=== PATIENT | female | born 1945 | race Caucasian/White ===

== ENCOUNTER 2017-07-04 10:39 | Inpatient (IN) | payer MEDICARE ==
[~2017-07-04] VITALS: Ht 152.4 cm; Wt 70.4 kg
[~2017-07-04 10:39] MED LIST: ASPI325 PO; ASPI325EC PO; ASPI81CH PO; ASPI81EC; ATOR10; ATOR40TA; CHOL10002 PO; CILO50; CILO50 PO; CLOP75 PO; ECHINACEA; FLAX PO; FLAX SEED OIL1 EACH PO; FLUO20 PO; GARLIC PO; GLIP5; GLIP5 PO; INS70/30I SC; INSUASPI SC; LISI5 PO; LORA.5 PO; LOVA20 PO; MECL25; MECL25 PO; METF500; METF500 PO; METO25ER PO; METO50 PO; NICO2 PO; Norco 5-325 Ta1 EACH PO; Prednisone20 MG PO; ROSU10TA; SIMV40 PO; SULTRIDS PO; VITAMIN D-32000 UNI1 PO; VITAMIN D-32000 UNIT; Zofran Odt4 MG SL; [UNRECOGNIZED DRUG - REMARK]
[2017-07-04 12:05] LABS: BASOPHILS ABSOLUTE AUTO 0.06 K/mm3 (0.00-0.23); BASOPHILS PERCENT AUTO 1 % (0-2); EOSINOPHILS ABSOLUTE AUTO 0.01 K/mm3 (0.00-0.68); EOSINOPHILS PERCENT AUTO 0 % (0-6); Hematocrit 33.9 % (33.0-51.0); Hemoglobin 10.8 g/dL (11.5-16.0); IMMATURE GRAN ABSOLUTE AUTO 0.03 K/mm3 (0.00-0.10); IMMATURE GRAN PERCENT AUTO 0 % (0-1); LYMPHOCYTES ABSOLUTE AUTO 0.87 K/mm3 (0.84-5.20); LYMPHOCYTES PERCENT AUTO 11 % (21-46); MONOCYTES ABSOLUTE AUTO 0.58 K/mm3 (0.16-1.47); MONOCYTES PERCENT AUTO 7 % (4-13); Mean Corpuscular HGB 28.5 pg (26.0-34.0); Mean Corpuscular HGB Conc 31.9 g/dL (31.5-36.5); Mean Corpuscular Volume 89 fL (80-100); Mean Platelet Volume 10.6 fL (9.1-12.4); NEUTROPHILS PERCENT AUTO 81 % (41-73); Platelet Count 273 K/mm3 (150-400); RDW Coefficient Variation 14.2 % (11.7-14.2); Red Blood Cell Count 3.79 M/mm3 (3.80-5.20); White Blood Cell Count 7.95 K/mm3 (4.00-11.30)
[2017-07-04 12:18] LABS: International Normalized Ratio 1.09; Prothrombin Time Results 11.4 Sec (9.7-11.5)
[2017-07-04 12:30] LABS: Albumin, Blood 2.8 g/dL (3.4-5.0); Albumin/Globulin Ratio 0.6 (0.8-1.8); Bilirubin, Total 0.5 mg/dL (0.1-1.0); Calcium, Blood 8.7 mg/dL (8.5-10.1); Creatinine, Blood 1.03 mg/dL (0.40-1.00); Globulin, Blood 4.5 g/dL (2.2-4.0); Potassium, Blood 5.6 mmol/L (3.5-5.5); Total Protein, Blood 7.3 g/dL (6.4-8.2)
[2017-07-04] MEDS ORDERED: ATOR40TA PO (16:12)
[2017-07-05 04:08] LABS: BASOPHILS ABSOLUTE AUTO 0.08 K/mm3 (0.00-0.23); BASOPHILS PERCENT AUTO 1 % (0-2); EOSINOPHILS ABSOLUTE AUTO 0.06 K/mm3 (0.00-0.68); EOSINOPHILS PERCENT AUTO 1 % (0-6); Hematocrit 30.7 % (33.0-51.0); IMMATURE GRAN ABSOLUTE AUTO 0.02 K/mm3 (0.00-0.10); IMMATURE GRAN PERCENT AUTO 0 % (0-1); LYMPHOCYTES ABSOLUTE AUTO 1.72 K/mm3 (0.84-5.20); LYMPHOCYTES PERCENT AUTO 26 % (21-46); MONOCYTES ABSOLUTE AUTO 0.77 K/mm3 (0.16-1.47); MONOCYTES PERCENT AUTO 12 % (4-13); Mean Corpuscular HGB 28.7 pg (26.0-34.0); Mean Corpuscular HGB Conc 32.6 g/dL (31.5-36.5); Mean Corpuscular Volume 88 fL (80-100); NEUTROPHILS ABSOLUTE AUTO 4.03 K/mm3 (1.96-9.15); NEUTROPHILS PERCENT AUTO 60 % (41-73); Platelet Count 259 K/mm3 (150-400); RDW Coefficient Variation 14.1 % (11.7-14.2); RDW Standard Deviation 45.1 fL (35.1-46.3); Red Blood Cell Count 3.49 M/mm3 (3.80-5.20); White Blood Cell Count 6.68 K/mm3 (4.00-11.30)
[2017-07-05 04:28] LABS: Bun/Creatinine Ratio 26.6 (12.0-20.0); Calcium, Blood 8.2 mg/dL (8.5-10.1); Creatinine, Blood 1.09 mg/dL (0.40-1.00); Potassium, Blood 4.7 mmol/L (3.5-5.5)
[2017-07-05] MEDS ORDERED: XARELTO20 MG PO (13:16)
[2017-07-06] MEDS ORDERED: INS70/30I SC (11:20)
== END 2017-07-06 12:41 | disposition home health service (06) | DRG 300 ==
LOC: ER 10:39 → PCU 15:04
PROVIDERS: Emergency Medicine; Hospitalist
DX: I82.412 Acute embolism and thrombosis of left femoral vein (principal); I74.3 Embolism and thrombosis of arteries of the lower extremities; I82.432 Acute embolism and thrombosis of left popliteal vein; E11.51 Type 2 diabetes mellitus with diabetic peripheral angiopathy without gangrene; D63.8 Anemia in other chronic diseases classified elsewhere; I99.8 Other disorder of circulatory system; E78.5 Hyperlipidemia, unspecified; F17.210 Nicotine dependence, cigarettes, uncomplicated; K58.2 Mixed irritable bowel syndrome; I10 Essential (primary) hypertension; E11.42 Type 2 diabetes mellitus with diabetic polyneuropathy; Z79.82 Long term (current) use of aspirin; Z79.4 Long term (current) use of insulin; Z79.899 Other long term (current) drug therapy; Z86.73 Personal history of transient ischemic attack (TIA), and cerebral infarction without residual deficits; Z95.820 Peripheral vascular angioplasty status with implants and grafts; Z88.8 Allergy status to other drugs, medicaments and biological substances
CPT/HCPCS: 36415; 80048; 80053; 82947; 85025; 85610; 85730; 93926; 93971; 96372; 97116; 97162; 97530; 99285; G8978; G8979; G8980; J1644; J1650; J7120

== ENCOUNTER 2017-07-14 14:21 | Emergency (ER) | payer MEDICARE, OTHER ==
[~2017-07-14] VITALS: Ht 152.4 cm; Wt 72.6 kg
[~2017-07-14 14:21] MED LIST changes: +ATOR40TA PO; +XARELTO20 MG PO
[2017-07-14 15:09] LABS: BASOPHILS ABSOLUTE AUTO 0.04 K/mm3 (0.00-0.23); BASOPHILS PERCENT AUTO 0 % (0-2); EOSINOPHILS ABSOLUTE AUTO 0.03 K/mm3 (0.00-0.68); EOSINOPHILS PERCENT AUTO 0 % (0-6); Hematocrit 31.7 % (33.0-51.0); IMMATURE GRAN ABSOLUTE AUTO 0.05 K/mm3 (0.00-0.10); IMMATURE GRAN PERCENT AUTO 1 % (0-1); LYMPHOCYTES ABSOLUTE AUTO 1.35 K/mm3 (0.84-5.20); LYMPHOCYTES PERCENT AUTO 14 % (21-46); MONOCYTES ABSOLUTE AUTO 0.79 K/mm3 (0.16-1.47); MONOCYTES PERCENT AUTO 8 % (4-13); Mean Corpuscular HGB 27.9 pg (26.0-34.0); Mean Corpuscular HGB Conc 31.5 g/dL (31.5-36.5); Mean Corpuscular Volume 88 fL (80-100); Mean Platelet Volume 10.1 fL (9.1-12.4); NEUTROPHILS ABSOLUTE AUTO 7.22 K/mm3 (1.96-9.15); NEUTROPHILS PERCENT AUTO 76 % (41-73); Platelet Count 360 K/mm3 (150-400); RDW Standard Deviation 45.4 fL (35.1-46.3); Red Blood Cell Count 3.59 M/mm3 (3.80-5.20); White Blood Cell Count 9.48 K/mm3 (4.00-11.30)
[2017-07-14 15:34] LABS: Albumin, Blood 2.6 g/dL (3.4-5.0); Albumin/Globulin Ratio 0.5 (0.8-1.8); Bilirubin, Total 0.3 mg/dL (0.1-1.0); Bun/Creatinine Ratio 25.2 (12.0-20.0); Calcium, Blood 9.2 mg/dL (8.5-10.1); Creatinine, Blood 1.11 mg/dL (0.40-1.00); Globulin, Blood 5.1 g/dL (2.2-4.0); Potassium, Blood 4.5 mmol/L (3.5-5.5); Total Protein, Blood 7.7 g/dL (6.4-8.2)
== END 2017-07-14 16:54 | disposition home or self-care (01) ==
LOC: ER 14:21
PROVIDERS: Emergency Medicine
DX: I82.402 Acute embolism and thrombosis of unspecified deep veins of left lower extremity (principal); L03.116 Cellulitis of left lower limb; I87.8 Other specified disorders of veins
CPT/HCPCS: 36415; 80053; 85025

== ENCOUNTER 2017-08-14 09:46 | Inpatient (IN) | payer MEDICARE ==
[~2017-08-14] VITALS: Ht 152.4 cm; Wt 68.6 kg
[2017-08-14 11:12] LABS: BASOPHILS ABSOLUTE AUTO 0.07 K/mm3 (0.00-0.23); BASOPHILS PERCENT AUTO 1 % (0-2); EOSINOPHILS ABSOLUTE AUTO 0.06 K/mm3 (0.00-0.68); EOSINOPHILS PERCENT AUTO 1 % (0-6); Hematocrit 28.7 % (33.0-51.0); Hemoglobin 8.9 g/dL (11.5-16.0); IMMATURE GRAN ABSOLUTE AUTO 0.04 K/mm3 (0.00-0.10); IMMATURE GRAN PERCENT AUTO 0 % (0-1); LYMPHOCYTES ABSOLUTE AUTO 1.16 K/mm3 (0.84-5.20); LYMPHOCYTES PERCENT AUTO 12 % (21-46); MONOCYTES ABSOLUTE AUTO 0.58 K/mm3 (0.16-1.47); MONOCYTES PERCENT AUTO 6 % (4-13); Mean Corpuscular HGB 27.6 pg (26.0-34.0); Mean Corpuscular Volume 89 fL (80-100); Mean Platelet Volume 10.2 fL (9.1-12.4); NEUTROPHILS PERCENT AUTO 80 % (41-73); Platelet Count 380 K/mm3 (150-400); RDW Coefficient Variation 15.2 % (11.7-14.2); RDW Standard Deviation 49.3 fL (35.1-46.3); Red Blood Cell Count 3.23 M/mm3 (3.80-5.20); White Blood Cell Count 9.61 K/mm3 (4.00-11.30)
[2017-08-14 11:19] LABS: Albumin, Blood 2.7 g/dL (3.4-5.0); Albumin/Globulin Ratio 0.7 (0.8-1.8); Bilirubin, Total 0.3 mg/dL (0.1-1.0); Bun/Creatinine Ratio 27.7 (12.0-20.0); Calcium, Blood 8.6 mg/dL (8.5-10.1); Creatinine, Blood 1.01 mg/dL (0.40-1.00); Globulin, Blood 4.1 g/dL (2.2-4.0); Potassium, Blood 4.3 mmol/L (3.5-5.5); Total Protein, Blood 6.8 g/dL (6.4-8.2)
[2017-08-14] MEDS ORDERED: Humalog Mi100 UNIT/5 INJ ×2 (11:25)
[2017-08-14 12:14] LABS: International Normalized Ratio 1.31; Prothrombin Time Results 13.3 Sec (9.7-11.5)
[2017-08-14 12:48] LABS: Percent Saturation 11.2 % (15.0-50.0)
[2017-08-14 16:47] LABS: Source, Urine Clean Catch
[2017-08-14 16:59] LABS: Bilirubin, Urine Neg (Neg); Blood, Urine 1+ (Neg); Glucose Qualitative, Urine 3+ (Neg); Ketones, Urine Neg (Neg); Leukocyte Esterase, Urine Neg (Neg); Nitrite, Urine Neg (Neg); Protein, Urine 3+ (Neg); Urobilinogen, Urine NORM (Normal)
[2017-08-14 17:12] LABS: Appearance, Urine Clear (Clear); Color, Urine Pale Yellow (P-Yellow); Red Blood Cells, Urine Not Seen /hpf (0-2); White Blood Cells, Urine Not Seen /hpf (0-5)
[2017-08-14 17:13] LABS: Bacteria Many /hpf; Squamous Epithelial Cells Few /hpf (Few)
[2017-08-15 04:43] LABS: BASOPHILS ABSOLUTE AUTO 0.05 K/mm3 (0.00-0.23); BASOPHILS PERCENT AUTO 1 % (0-2); EOSINOPHILS ABSOLUTE AUTO 0.07 K/mm3 (0.00-0.68); EOSINOPHILS PERCENT AUTO 1 % (0-6); Hematocrit 26.2 % (33.0-51.0); Hemoglobin 8.3 g/dL (11.5-16.0); IMMATURE GRAN ABSOLUTE AUTO 0.01 K/mm3 (0.00-0.10); IMMATURE GRAN PERCENT AUTO 0 % (0-1); LYMPHOCYTES ABSOLUTE AUTO 1.54 K/mm3 (0.84-5.20); LYMPHOCYTES PERCENT AUTO 20 % (21-46); MONOCYTES ABSOLUTE AUTO 0.58 K/mm3 (0.16-1.47); MONOCYTES PERCENT AUTO 7 % (4-13); Mean Corpuscular HGB 27.7 pg (26.0-34.0); Mean Corpuscular HGB Conc 31.7 g/dL (31.5-36.5); Mean Corpuscular Volume 87 fL (80-100); Mean Platelet Volume 9.7 fL (9.1-12.4); NEUTROPHILS ABSOLUTE AUTO 5.61 K/mm3 (1.96-9.15); NEUTROPHILS PERCENT AUTO 71 % (41-73); Platelet Count 318 K/mm3 (150-400); RDW Coefficient Variation 15.3 % (11.7-14.2); RDW Standard Deviation 48.7 fL (35.1-46.3); White Blood Cell Count 7.86 K/mm3 (4.00-11.30)
[2017-08-15 04:57] LABS: Bun/Creatinine Ratio 22.8 (12.0-20.0); Calcium, Blood 8.3 mg/dL (8.5-10.1); Creatinine, Blood 1.14 mg/dL (0.40-1.00); Potassium, Blood 4.4 mmol/L (3.5-5.5)
[2017-08-15] MEDS ORDERED: LORA.5 PO (22:24)
[2017-08-16 14:31] LABS: Vancomycin, Trough 15.6 ug/mL (5.0-10.0)
[2017-08-17 00:31] LABS: Stool Occult Blood Guaiac 1 Pos (Neg)
[2017-08-17 07:22] LABS: BASOPHILS ABSOLUTE AUTO 0.06 K/mm3 (0.00-0.23); BASOPHILS PERCENT AUTO 1 % (0-2); EOSINOPHILS ABSOLUTE AUTO 0.08 K/mm3 (0.00-0.68); EOSINOPHILS PERCENT AUTO 1 % (0-6); Hematocrit 26.7 % (33.0-51.0); Hemoglobin 8.3 g/dL (11.5-16.0); IMMATURE GRAN ABSOLUTE AUTO 0.02 K/mm3 (0.00-0.10); IMMATURE GRAN PERCENT AUTO 0 % (0-1); LYMPHOCYTES ABSOLUTE AUTO 1.49 K/mm3 (0.84-5.20); LYMPHOCYTES PERCENT AUTO 23 % (21-46); MONOCYTES ABSOLUTE AUTO 0.55 K/mm3 (0.16-1.47); MONOCYTES PERCENT AUTO 9 % (4-13); Mean Corpuscular HGB 27.3 pg (26.0-34.0); Mean Corpuscular HGB Conc 31.1 g/dL (31.5-36.5); Mean Corpuscular Volume 88 fL (80-100); Mean Platelet Volume 9.9 fL (9.1-12.4); NEUTROPHILS ABSOLUTE AUTO 4.21 K/mm3 (1.96-9.15); NEUTROPHILS PERCENT AUTO 66 % (41-73); Platelet Count 328 K/mm3 (150-400); RDW Coefficient Variation 15.6 % (11.7-14.2); RDW Standard Deviation 49.5 fL (35.1-46.3); Red Blood Cell Count 3.04 M/mm3 (3.80-5.20); White Blood Cell Count 6.41 K/mm3 (4.00-11.30)
[2017-08-17 07:37] LABS: Bun/Creatinine Ratio 20.9 (12.0-20.0); Calcium, Blood 8.1 mg/dL (8.5-10.1); Creatinine, Blood 1.39 mg/dL (0.40-1.00); Potassium, Blood 4.6 mmol/L (3.5-5.5)
[2017-08-18 08:51] LABS: Hematocrit 28.8 % (33.0-51.0)
[2017-08-18 09:07] LABS: Bun/Creatinine Ratio 17.2 (12.0-20.0); Calcium, Blood 8.5 mg/dL (8.5-10.1); Creatinine, Blood 1.16 mg/dL (0.40-1.00); Potassium, Blood 4.4 mmol/L (3.5-5.5)
[2017-08-19] MEDS ORDERED: ACET325 PO (11:09)
[2017-08-19] MEDS ORDERED: Ferrous Sulfat325 M2 PO (11:10)
[2017-08-19] MEDS ORDERED: ACIDOPHILUS LA1 EACH PO (11:11)
[2017-08-19] MEDS ORDERED: Silvadene20 GM TOP (11:12)
[2017-08-19] MEDS ORDERED: [UNRECOGNIZED DRUG - OTHER] TOP (11:12)
[2017-08-19] MEDS ORDERED: Augmentin 875-1 EACH PO (11:14)
== END 2017-08-19 11:42 | disposition home or self-care (01) | DRG 638 ==
LOC: ER 09:46 → MEDS 11:45
PROVIDERS: Internal Medicine
DX: E11.622 Type 2 diabetes mellitus with other skin ulcer (principal); L03.116 Cellulitis of left lower limb; L89.529 Pressure ulcer of left ankle, unspecified stage; F17.210 Nicotine dependence, cigarettes, uncomplicated; Z86.718 Personal history of other venous thrombosis and embolism; Z79.01 Long term (current) use of anticoagulants; S91.002A Unspecified open wound, left ankle, initial encounter; E11.51 Type 2 diabetes mellitus with diabetic peripheral angiopathy without gangrene; D50.9 Iron deficiency anemia, unspecified; Z79.84 Long term (current) use of oral hypoglycemic drugs; I12.9 Hypertensive chronic kidney disease with stage 1 through stage 4 chronic kidney disease, or unspecified chronic kidney disease; E11.22 Type 2 diabetes mellitus with diabetic chronic kidney disease; N18.3 Chronic kidney disease, stage 3 (moderate); R19.7 Diarrhea, unspecified; A49.01 Methicillin susceptible Staphylococcus aureus infection, unspecified site; B95.4 Other streptococcus as the cause of diseases classified elsewhere
CPT/HCPCS: 36415; 73610; 80048; 80053; 80202; 81001; 82272; 82565; 82728; 82947; 83540; 83550; 83605; 85014; 85018; 85025; 85610; 85730; 87040; 87070; 87075; 87077; 87147; 87186; 87205; 87493; 93005; 93010; 96374; 97110; 97116; 97161; 99285; G8978; G8979; J0690; J1815; J2405; J2543; J2765; J3370; J7030; J7120

== ENCOUNTER 2017-08-22 11:54 | Inpatient (IN) | payer MEDICARE ==
[~2017-08-22] VITALS: Ht 167.6 cm; Wt 63.8 kg
[~2017-08-22 11:54] MED LIST changes: +ACET325 PO; +ACIDOPHILUS LA1 EACH PO; +Augmentin 875-1 EACH PO; +Ferrous Sulfat325 M2 PO; +Humalog Mi100 UNIT/5 INJ; +Silvadene20 GM TOP; +XARELTO15 MG PO; -XARELTO20 MG PO; +[UNRECOGNIZED DRUG - OTHER] TOP
[2017-08-22 12:30] LABS: PCO2 Arterial 35.6 mmHg (35-45)
[2017-08-22 12:39] LABS: BASOPHILS ABSOLUTE AUTO 0.05 K/mm3 (0.00-0.23); BASOPHILS PERCENT AUTO 1 % (0-2); EOSINOPHILS PERCENT AUTO 0 % (0-6); Hematocrit 33.5 % (33.0-51.0); Hemoglobin 9.9 g/dL (11.5-16.0); IMMATURE GRAN ABSOLUTE AUTO 0.04 K/mm3 (0.00-0.10); IMMATURE GRAN PERCENT AUTO 0 % (0-1); LYMPHOCYTES ABSOLUTE AUTO 0.56 K/mm3 (0.84-5.20); LYMPHOCYTES PERCENT AUTO 5 % (21-46); MONOCYTES ABSOLUTE AUTO 0.22 K/mm3 (0.16-1.47); MONOCYTES PERCENT AUTO 2 % (4-13); Mean Corpuscular HGB 26.8 pg (26.0-34.0); Mean Corpuscular HGB Conc 29.6 g/dL (31.5-36.5); Mean Platelet Volume 9.9 fL (9.1-12.4); NEUTROPHILS ABSOLUTE AUTO 9.76 K/mm3 (1.96-9.15); NEUTROPHILS PERCENT AUTO 92 % (41-73); Platelet Count 546 K/mm3 (150-400); RDW Coefficient Variation 16.2 % (11.7-14.2); RDW Standard Deviation 53.6 fL (35.1-46.3); Red Blood Cell Count 3.69 M/mm3 (3.80-5.20); White Blood Cell Count 10.63 K/mm3 (4.00-11.30)
[2017-08-22 12:49] LABS: Mean Corpuscular Volume 91 fL (80-100)
[2017-08-22 12:52] LABS: Alanine Aminotransfer (ALT/SGP 12 U/L (12-78); Albumin, Blood 2.9 g/dL (3.4-5.0); Albumin/Globulin Ratio 0.6 (0.8-1.8); Alk Phos 92 U/L (50-136); Anion Gap 17 mmol/L (6-16); Aspartate Aminotrans (AST/SGOT 14 U/L (12-37); Bilirubin, Total 0.4 mg/dL (0.1-1.0); Blood Urea Nitrogen 27 mg/dL (8-24); Bun/Creatinine Ratio 28.3 (12.0-20.0); CO2, Blood 19 mmol/L (21-32); Calcium, Blood 9.1 mg/dL (8.5-10.1); Chloride, Blood 102 mmol/L (98-108); Creatinine, Blood 0.96 mg/dL (0.40-1.00); Globulin, Blood 4.7 g/dL (2.2-4.0); Glomerular Filtration Rate >60 (60-); Glucose, Blood 416 mg/dL (70-99); Potassium, Blood 4.2 mmol/L (3.5-5.5); Sodium, Blood 138 mmol/L (136-145); Total Protein, Blood 7.6 g/dL (6.4-8.2); Troponin I 0.387 ng/mL (0.000-0.040)
[2017-08-22 17:35] LABS: Beta-hydroxybutyrate 23.3 mg/dL (0.2-2.8); Thyroid Stimulating Hormone 3.72 uIU/mL (0.360-4.800)
[2017-08-22 21:47] LABS: Creatine Kinase MB 5.2 ng/mL (0.0-3.6); Creatine Kinase MB Index 7.1 (0.0-4.0)
[2017-08-22 22:02] LABS: Troponin I 1.34 ng/mL (0.000-0.040)
[2017-08-22 23:35] LABS: Troponin I 1.25 ng/mL (0.000-0.040)
[2017-08-22] MEDS ORDERED: AMOX875 PO (23:46)
[2017-08-23 03:45] LABS: Hematocrit 25.3 % (33.0-51.0); Hemoglobin 7.9 g/dL (11.5-16.0); Mean Corpuscular HGB 27.5 pg (26.0-34.0); Mean Corpuscular HGB Conc 31.2 g/dL (31.5-36.5); Platelet Count 359 K/mm3 (150-400); RDW Coefficient Variation 16.3 % (11.7-14.2); Red Blood Cell Count 2.87 M/mm3 (3.80-5.20); White Blood Cell Count 9.49 K/mm3 (4.00-11.30)
[2017-08-23 03:51] LABS: Mean Corpuscular Volume 88 fL (80-100)
[2017-08-23 04:07] LABS: Alanine Aminotransfer (ALT/SGP 10 U/L (12-78); Albumin, Blood 2.6 g/dL (3.4-5.0); Albumin/Globulin Ratio 0.7 (0.8-1.8); Alk Phos 68 U/L (50-136); Anion Gap 10 mmol/L (6-16); Aspartate Aminotrans (AST/SGOT 18 U/L (12-37); Bilirubin, Total 0.4 mg/dL (0.1-1.0); Blood Urea Nitrogen 33 mg/dL (8-24); CO2, Blood 25 mmol/L (21-32); Calcium, Blood 7.9 mg/dL (8.5-10.1); Chloride, Blood 100 mmol/L (98-108); Cholesterol 120 mg/dL (50-200); Creatinine, Blood 1.27 mg/dL (0.40-1.00); Globulin, Blood 3.8 g/dL (2.2-4.0); Glomerular Filtration Rate 44 (60-); Glucose, Blood 256 mg/dL (70-99); Magnesium, Blood 1.7 mg/dL (1.6-2.4); Phosphorus, Blood 3.2 mg/dL (2.5-4.9); Potassium, Blood 3.9 mmol/L (3.5-5.5); Sodium, Blood 135 mmol/L (136-145); Total Protein, Blood 6.4 g/dL (6.4-8.2); Triglycerides 162 mg/dL (30-160); Very Low Density Lipoprot Chol 32 mg/dL (6-32)
[2017-08-23 04:09] LABS: CHOL/HDL RATIO 2.9; HDL Cholesterol 41 mg/dL (>39); LDL/HDL RATIO 1.1; Low Density Lipoprotein Chol 47 mg/dL (0-110)
[2017-08-23 09:04] LABS: Creatine Kinase MB 3.5 ng/mL (0.0-3.6); Creatine Kinase MB Index 5.1 (0.0-4.0)
[2017-08-23 09:06] LABS: Troponin I 1.22 ng/mL (0.000-0.040)
[2017-08-23 15:48] LABS: Troponin I 0.875 ng/mL (0.000-0.040)
[2017-08-23 17:20] LABS: Source, Urine Clean Catch
[2017-08-23 17:22] LABS: Bilirubin, Urine Neg (Neg); Blood, Urine Neg (Neg); Glucose Qualitative, Urine Neg (Neg); Ketones, Urine Neg (Neg); Leukocyte Esterase, Urine 1+ (Neg); Nitrite, Urine Neg (Neg); Protein, Urine Neg (Neg); Urobilinogen, Urine NORM (Normal)
[2017-08-23 17:42] LABS: Appearance, Urine Clear (Clear); Color, Urine Yellow (P-Yellow)
[2017-08-23 17:43] LABS: Bacteria Not Seen /hpf; Red Blood Cells, Urine Not Seen /hpf (0-2); Squamous Epithelial Cells Mod /hpf (Few); White Blood Cells, Urine 0-2 /hpf (0-5)
[2017-08-24 09:41] LABS: Albumin, Blood 2.8 g/dL (3.4-5.0); Anion Gap 10 mmol/L (6-16); Blood Urea Nitrogen 35 mg/dL (8-24); Bun/Creatinine Ratio 28.9 (12.0-20.0); CO2, Blood 25 mmol/L (21-32); Calcium, Blood 8.2 mg/dL (8.5-10.1); Chloride, Blood 101 mmol/L (98-108); Creatinine, Blood 1.21 mg/dL (0.40-1.00); Glomerular Filtration Rate 47 (60-); Glucose, Blood 201 mg/dL (70-99); Phosphorus, Blood 3.3 mg/dL (2.5-4.9); Potassium, Blood 4.1 mmol/L (3.5-5.5); Sodium, Blood 136 mmol/L (136-145)
[2017-08-25 05:12] LABS: Albumin, Blood 2.7 g/dL (3.4-5.0); Anion Gap 9 mmol/L (6-16); Blood Urea Nitrogen 38 mg/dL (8-24); Bun/Creatinine Ratio 27.5 (12.0-20.0); CO2, Blood 26 mmol/L (21-32); Calcium, Blood 8.1 mg/dL (8.5-10.1); Chloride, Blood 102 mmol/L (98-108); Creatinine, Blood 1.38 mg/dL (0.40-1.00); Glomerular Filtration Rate 40 (60-); Glucose, Blood 142 mg/dL (70-99); Phosphorus, Blood 3.5 mg/dL (2.5-4.9); Potassium, Blood 4.2 mmol/L (3.5-5.5); Sodium, Blood 137 mmol/L (136-145)
[2017-08-25] MEDS ORDERED: FURO20 PO (10:03)
== END 2017-08-25 17:46 | disposition home health service (06) | DRG 280 ==
LOC: ER 11:54 → ERHOLD 13:05 → PCU 13:05 → ER 13:05 → PCU 20:22 → MEDS 20:23 → PCU 23:34 → MEDS 08-25 00:27 → ENPENDDIS 08-25 17:24 → MEDS 08-25 17:46
PROVIDERS: Emergency Medicine; Internal Medicine
DX: I21.4 Non-ST elevation (NSTEMI) myocardial infarction (principal); J96.01 Acute respiratory failure with hypoxia; I50.21 Acute systolic (congestive) heart failure; I13.0 Hypertensive heart and chronic kidney disease with heart failure and stage 1 through stage 4 chronic kidney disease, or unspecified chronic kidney disease; E87.2 Acidosis; K52.1 Toxic gastroenteritis and colitis; L03.116 Cellulitis of left lower limb; L97.329 Non-pressure chronic ulcer of left ankle with unspecified severity; N18.3 Chronic kidney disease, stage 3 (moderate); E11.22 Type 2 diabetes mellitus with diabetic chronic kidney disease; F41.9 Anxiety disorder, unspecified; F41.0 Panic disorder [episodic paroxysmal anxiety]; E11.65 Type 2 diabetes mellitus with hyperglycemia; T36.95XA Adverse effect of unspecified systemic antibiotic, initial encounter; E11.622 Type 2 diabetes mellitus with other skin ulcer; E11.51 Type 2 diabetes mellitus with diabetic peripheral angiopathy without gangrene; D50.9 Iron deficiency anemia, unspecified; F17.210 Nicotine dependence, cigarettes, uncomplicated; Z66 Do not resuscitate
CPT/HCPCS: 36415; 36600; 71045; 80053; 80061; 80069; 81001; 82010; 82550; 82553; 82803; 82947; 83036; 83605; 83690; 83735; 83880; 84100; 84145; 84443; 84484; 85025; 85027; 93005; 93010; 93306; 94640; 94760; 96374; 97116; 97161; 99285; G8978; G8979; G8980; J1815; J1940; J2405; J7030

== ENCOUNTER 2017-08-26 11:48 | Emergency (ER) | payer MEDICARE ==
[~2017-08-26] VITALS: Ht 152.4 cm; Wt 68.0 kg
[~2017-08-26 11:48] MED LIST changes: +AMOX875 PO; +FURO20 PO
[2017-08-26 12:51] LABS: BASOPHILS ABSOLUTE AUTO 0.03 K/mm3 (0.00-0.23); BASOPHILS PERCENT AUTO 1 % (0-2); EOSINOPHILS ABSOLUTE AUTO 0.02 K/mm3 (0.00-0.68); EOSINOPHILS PERCENT AUTO 0 % (0-6); Hemoglobin 9.1 g/dL (11.5-16.0); IMMATURE GRAN ABSOLUTE AUTO 0.01 K/mm3 (0.00-0.10); IMMATURE GRAN PERCENT AUTO 0 % (0-1); LYMPHOCYTES ABSOLUTE AUTO 0.94 K/mm3 (0.84-5.20); LYMPHOCYTES PERCENT AUTO 16 % (21-46); MONOCYTES ABSOLUTE AUTO 0.45 K/mm3 (0.16-1.47); MONOCYTES PERCENT AUTO 8 % (4-13); Mean Corpuscular HGB 26.9 pg (26.0-34.0); Mean Corpuscular HGB Conc 31.4 g/dL (31.5-36.5); Mean Corpuscular Volume 86 fL (80-100); NEUTROPHILS ABSOLUTE AUTO 4.46 K/mm3 (1.96-9.15); NEUTROPHILS PERCENT AUTO 76 % (41-73); Platelet Count 428 K/mm3 (150-400); RDW Coefficient Variation 16.1 % (11.7-14.2); RDW Standard Deviation 49.9 fL (35.1-46.3); Red Blood Cell Count 3.38 M/mm3 (3.80-5.20); White Blood Cell Count 5.91 K/mm3 (4.00-11.30)
[2017-08-26 13:04] LABS: Albumin, Blood 2.9 g/dL (3.4-5.0); Albumin/Globulin Ratio 0.7 (0.8-1.8); Bilirubin, Total 0.3 mg/dL (0.1-1.0); Bun/Creatinine Ratio 31.1 (12.0-20.0); Calcium, Blood 8.6 mg/dL (8.5-10.1); Globulin, Blood 4.2 g/dL (2.2-4.0); Potassium, Blood 3.9 mmol/L (3.5-5.5); Total Protein, Blood 7.1 g/dL (6.4-8.2)
== END 2017-08-26 14:14 | disposition home or self-care (01) ==
LOC: ER 11:48
PROVIDERS: Emergency Medicine
DX: E11.65 Type 2 diabetes mellitus with hyperglycemia (principal); I10 Essential (primary) hypertension; F17.210 Nicotine dependence, cigarettes, uncomplicated; Z88.8 Allergy status to other drugs, medicaments and biological substances; Z79.899 Other long term (current) drug therapy; Z79.82 Long term (current) use of aspirin; Z79.4 Long term (current) use of insulin; Z86.73 Personal history of transient ischemic attack (TIA), and cerebral infarction without residual deficits
CPT/HCPCS: 36415; 71046; 80053; 82947; 85025; 93005; 93010; 99283

== ENCOUNTER 2017-10-31 12:51 | Emergency (ER) | payer MEDICARE, OTHER ==
[~2017-10-31] VITALS: Ht 152.4 cm; Wt 68.0 kg
[2017-10-31] MEDS ORDERED: Pantoprazole So40 MG PO (13:50)
[2017-10-31] MEDS ORDERED: Klor-Con M1010 MEQ PO (13:51)
[2017-10-31] MEDS ORDERED: FURO40 PO (13:51)
[2017-10-31 13:59] LABS: Source, Urine Clean Catch
[2017-10-31 14:00] LABS: BASOPHILS ABSOLUTE AUTO 0.05 K/mm3 (0.00-0.23); BASOPHILS PERCENT AUTO 1 % (0-2); EOSINOPHILS ABSOLUTE AUTO 0.02 K/mm3 (0.00-0.68); EOSINOPHILS PERCENT AUTO 0 % (0-6); Hematocrit 32.6 % (33.0-51.0); Hemoglobin 10.1 g/dL (11.5-16.0); IMMATURE GRAN ABSOLUTE AUTO 0.03 K/mm3 (0.00-0.10); IMMATURE GRAN PERCENT AUTO 0 % (0-1); LYMPHOCYTES ABSOLUTE AUTO 0.79 K/mm3 (0.84-5.20); LYMPHOCYTES PERCENT AUTO 9 % (21-46); MONOCYTES ABSOLUTE AUTO 0.44 K/mm3 (0.16-1.47); MONOCYTES PERCENT AUTO 5 % (4-13); Mean Corpuscular HGB 25.8 pg (26.0-34.0); Mean Corpuscular Volume 83 fL (80-100); Mean Platelet Volume 11.9 fL (9.1-12.4); NEUTROPHILS ABSOLUTE AUTO 7.06 K/mm3 (1.96-9.15); NEUTROPHILS PERCENT AUTO 84 % (41-73); Platelet Count 244 K/mm3 (150-400); RDW Coefficient Variation 16.3 % (11.7-14.2); RDW Standard Deviation 49.8 fL (35.1-46.3); Red Blood Cell Count 3.91 M/mm3 (3.80-5.20); White Blood Cell Count 8.39 K/mm3 (4.00-11.30)
[2017-10-31 14:06] LABS: Bilirubin, Urine Neg (Neg); Blood, Urine 1+ (Neg); Glucose Qualitative, Urine 4+ (Neg); Ketones, Urine Neg (Neg); Leukocyte Esterase, Urine Neg (Neg); Nitrite, Urine Neg (Neg); Protein, Urine 2+ (Neg); Specific Gravity, Urine 1.015 (1.003-1.022); Urobilinogen, Urine NORM (Normal)
[2017-10-31 14:19] LABS: Albumin, Blood 3.6 g/dL (3.4-5.0); Albumin/Globulin Ratio 0.8 (0.8-1.8); Bilirubin, Total 0.4 mg/dL (0.1-1.0); Bun/Creatinine Ratio 26.8 (12.0-20.0); Calcium, Blood 8.9 mg/dL (8.5-10.1); Creatinine, Blood 1.64 mg/dL (0.40-1.00); Globulin, Blood 4.5 g/dL (2.2-4.0); Potassium, Blood 4.6 mmol/L (3.5-5.5); Total Protein, Blood 8.1 g/dL (6.4-8.2); Troponin I 0.016 ng/mL (0.000-0.040)
[2017-10-31 14:23] LABS: Appearance, Urine Clear (Clear); Color, Urine Yellow (P-Yellow)
[2017-10-31 14:28] LABS: Bacteria Many /hpf; Squamous Epithelial Cells Many /hpf (Few); White Blood Cells, Urine 0-2 /hpf (0-5)
== END 2017-10-31 18:11 | disposition home or self-care (01) ==
LOC: ER 12:51
PROVIDERS: Emergency Medicine
DX: R55 Syncope and collapse (principal); N17.9 Acute kidney failure, unspecified; E86.0 Dehydration; I12.9 Hypertensive chronic kidney disease with stage 1 through stage 4 chronic kidney disease, or unspecified chronic kidney disease; N18.9 Chronic kidney disease, unspecified; E11.22 Type 2 diabetes mellitus with diabetic chronic kidney disease; Z88.8 Allergy status to other drugs, medicaments and biological substances; Z79.899 Other long term (current) drug therapy; Z79.4 Long term (current) use of insulin; F17.210 Nicotine dependence, cigarettes, uncomplicated; Z86.73 Personal history of transient ischemic attack (TIA), and cerebral infarction without residual deficits
CPT/HCPCS: 36415; 70450; 80053; 81001; 84484; 85025; 87086; 93005; 93010; 96360; 99284-25; J7030

== ENCOUNTER 2017-11-25 00:16 | Day surgery (SDC) | payer MEDICARE, OTHER ==
[~2017-11-25 00:16] MED LIST changes: +FURO40 PO; +Klor-Con M1010 MEQ PO; +Pantoprazole So40 MG PO
== END 2017-11-25 22:41 | disposition home or self-care (01) ==
LOC: WOUND 00:16
DX: E11.621 Type 2 diabetes mellitus with foot ulcer (principal); L97.322 Non-pressure chronic ulcer of left ankle with fat layer exposed; L97.312 Non-pressure chronic ulcer of right ankle with fat layer exposed; E11.22 Type 2 diabetes mellitus with diabetic chronic kidney disease; I13.0 Hypertensive heart and chronic kidney disease with heart failure and stage 1 through stage 4 chronic kidney disease, or unspecified chronic kidney disease; N18.3 Chronic kidney disease, stage 3 (moderate); I50.22 Chronic systolic (congestive) heart failure; L84 Corns and callosities; E11.59 Type 2 diabetes mellitus with other circulatory complications; E11.51 Type 2 diabetes mellitus with diabetic peripheral angiopathy without gangrene; F17.200 Nicotine dependence, unspecified, uncomplicated; Z95.820 Peripheral vascular angioplasty status with implants and grafts
CPT/HCPCS: G0463

== ENCOUNTER 2017-12-27 00:10 | Day surgery (SDC) | payer MEDICARE, OTHER | END 2017-12-27 23:02 | disposition home or self-care (01) | LOC: WOUND 00:10 | DX: L97.322 Non-pressure chronic ulcer of left ankle with fat layer exposed (principal); L97.312 Non-pressure chronic ulcer of right ankle with fat layer exposed; E11.51 Type 2 diabetes mellitus with diabetic peripheral angiopathy without gangrene; E11.621 Type 2 diabetes mellitus with foot ulcer; I13.0 Hypertensive heart and chronic kidney disease with heart failure and stage 1 through stage 4 chronic kidney disease, or unspecified chronic kidney disease; E11.22 Type 2 diabetes mellitus with diabetic chronic kidney disease; N18.3 Chronic kidney disease, stage 3 (moderate); I50.22 Chronic systolic (congestive) heart failure; Z79.01 Long term (current) use of anticoagulants; F17.210 Nicotine dependence, cigarettes, uncomplicated | CPT/HCPCS: 87070; 87077; 87147; 87186; 87205 ==